=== PATIENT | female | born 1990 | race Caucasian/White ===

== ENCOUNTER 2017-12-09 13:14 | Day surgery (SDC) | payer OTHER, BC ==
[2017-12-09] MEDS ORDERED: CEFAZOLIN 1 GM INJ (14:23)
[2017-12-09] MEDS ORDERED: NEOSTIGMINE 3 MG/3 ML SYRINGE (14:23)
[2017-12-09] MEDS ORDERED: ROCURONIUM 50 MG INJ (14:23)
[2017-12-09] MEDS ORDERED: GLYCOPYRROLATE 0.4 MG INJ (14:23)
[2017-12-09] MEDS ORDERED: PROPOFOL 20 ML (14:23)
[2017-12-09] MEDS ORDERED: ONDANSETRON 4 MG INJ (14:25)
[2017-12-09] MEDS ORDERED: MIDAZOLAM 1 MG/ML 2 ML INJ (14:25)
[2017-12-09] MEDS ORDERED: FENTAnyl 50 MCG/ML VIAL (14:25)
[2017-12-09] MEDS ORDERED: DEXAMETHASONE 4 MG/ML 1 ML INJ (14:25)
[2017-12-09] MEDS ORDERED: LABETALOL HCL 20MG INJ IV (15:00)
[2017-12-09] MEDS ORDERED: MIDAZOLAM 1 MG/ML 2 ML INJ IV (15:00)
[2017-12-09] MEDS ORDERED: hydrALAzine 20 MG INJ IV (15:00)
[2017-12-09] MEDS ORDERED: ONDANSETRON 4 MG INJ IV (15:00)
[2017-12-09] MEDS ORDERED: DIPHENHYDRAMINE 50 MG INJ IV (15:00)
[2017-12-09] MEDS ORDERED: TRIMETHOBENZAMIDE 100 MG/ML VIAL IM (15:00)
[2017-12-09] MEDS ORDERED: EPHEDrine SULFATE 50 MG/5 ML SYG IV (15:00)
[2017-12-09] MEDS ORDERED: HYDROmorphONE (0.2 MG/ML) 10ML SYG IV ×3 (15:00)
[2017-12-09] MEDS ORDERED: ALBUTEROL 0.083% (NEB) 2.5 MG/3 ML AMP HHN (15:00)
[2017-12-09] MEDS ORDERED: MEPERIDINE 25 MG INJ IV (15:00)
[2017-12-09] MEDS ORDERED: IPRATROPIUM (NEB) 0.5 MG/2.5 ML AMP HHN (15:00)
[2017-12-09] MEDS ORDERED: FENTAnyl 50 MCG/ML VIAL IV ×3 (15:00)
[2017-12-09] MEDS ORDERED: OXYCODONE/ACETAMINOPHEN (5/325) TAB PO ×2 (15:00)
[2017-12-09] MEDS ORDERED: SUGAMMADEX SODIUM 200 MG/2 ML VIAL IV (15:02)
[2017-12-09] MEDS ORDERED: HYDROCODONE/APAP (5/325) TAB PO (15:30)
== END 2017-12-09 17:02 | disposition home or self-care (01) ==
LOC: SDS 13:14
DX: J35.01 Chronic tonsillitis (principal); E66.9 Obesity, unspecified; Z68.30 Body mass index [BMI] 30.0-30.9, adult
CPT/HCPCS: 42826